=== PATIENT | male | born 1940 ===

== ENCOUNTER 2022-09-09 09:34 | Emergency (ER) | payer BC, SELFPAY ==
[2022-09-09] VITALS (11 sets, daily range): BP systolic 130–154; BP diastolic 37–93; PULSE 50–81; RESP 20; TEMP 36.4; O2SAT 93–98; BMI 25.8
--- NOTE | 2022-09-09 09:54 | CRLHL7_ITS ---
For Patients: As a result of the Cures Act, medical imaging exams and procedure reports are released immediately into your electronic medical record. You may view this report before your referring provider. If you have questions, please contact your health care provider. INDICATION: Bradycardia COMPARISON: None TECHNIQUE: AP portable single view study FINDINGS: TUBES AND LINES: None. HEART AND MEDIASTINUM: The heart size is normal. The mediastinal contour appears normal for patient age. LUNGS AND PLEURAL SPACES: The lungs appear normal.The pleural spaces are unremarkable. OSSEOUS STRUCTURES: Age-appropriate appearance. No acute focal finding. IMPRESSION: No evidence of active pulmonary disease. Dictated by Angel Clayton MD @ 09/09/2022 10:36:40 AM (Electronically Signed)
--- NOTE | 2022-09-09 10:02 | ED.GENADULT ---
HPI - General Adult General Time Seen by Provider: 10:02 Date Seen: 09/09/22 Chief complaint: High Blood Pressure Stated complaint: High BP low pulse Time Seen by Provider: 09/09/22 09:40 Source: patient Mode of arrival: ambulatory Limitations: no limitations History of Present Illness HPI narrative: Patient is an 81-year-old male lives independently presents with his niece. He sees Dr. Jose G pandya in [place] for primary care. He has a health history of hypertension and is on Cardura and lisinopril. He checks his blood pressure and pulse regularly and he notices occasionally his pulse is in the 30s, but he does this on a home monitor. He has no symptoms. No dizziness lightheadedness. He does have a history of vertigo. He has had no chest pain, shortness of breath, COVID symptoms. He has been active without chest pain or shortness of breath. He called the clinic and they told him to come directly to the ER Related Data Home Medications Medication Instructions Recorded Confirmed atorvastatin 10 mg tablet 10 mg PO DAILY 09/09/22 09/09/22 doxazosin 8 mg tablet (Cardura) 8 mg PO DAILY 09/09/22 09/09/22 levothyroxine 112 mcg capsule 112 mcg PO DAILY 09/09/22 09/09/22 lisinopril 20 mg tablet 20 mg PO DAILY 09/09/22 09/09/22 Previous Rx's Medication Instructions Recorded apixaban 2.5 mg tablet (Eliquis) 2.5 mg PO BID #60 tabs 09/09/22 Allergies Allergy/AdvReac Type Severity Reaction Status Date / Time levofloxacin [From Levaquin] Allergy Verified 09/09/22 09:54 Review of Systems Status of ROS: Reports: 6 or more systems reviewed and unremarkable except as noted in History and below PFSH PFSH Social History Smoking Status: Former smoker What tobacco products do you use: cigarettes Do you use any of these nicotine containing products: None Second hand tobacco smoke exposure: No How often do you have a drink containing alcohol: monthly or less How often do you have six or more drinks on one occasion: Never AUDIT-C Alcohol total score: 1 Non-prescribed substance use: denies use Exam Narrative: Exam Narrative: Objective: Patient is in no apparent distress vital signs unremarkable his pulse is 67 his blood pressure is 154/93 O2 sat is 97% on room air HEENT is unremarkable no scleral icterus no facial asymmetry Neck is supple Chest clear Heart rhythm regular with 2/6 systolic murmur occasional ectopic beat noted Abdomen benign soft nontender no masses Extremities are no edema neurologic nonfocal Skin is warm and dry, good peripheral perfusion Const: Vital Signs, click to edit/add: Vital Signs - 24 hr 09/09/22 09:42 09/09/22 10:18 09/09/22 10:30 Temperature 97.6 F Pulse Rate 57 L 62 Pulse Rate [Right Pulse Oximeter] 67 Respiratory Rate 20 Blood Pressure Blood Pressure [Ri ght Upper Arm] 154/93 H Pulse Oximetry 97 94 96 Oxygen Delivery Me thod Room Air 09/09/22 10:32 09/09/22 10:45 09/09/22 11:00 Temperature Pulse Rate 58 L 53 L 57 L Pulse Rate [Right Pulse Oximeter] Respiratory Rate Blood Pressure 140/76 H Blood Pressure [Ri ght Upper Arm] Pulse Oximetry 94 98 97 Oxygen Delivery Me thod 09/09/22 11:02 09/09/22 11:15 09/09/22 11:30 Temperature Pulse Rate 53 L 50 L 52 L Pulse Rate [Right Pulse Oximeter] Respiratory Rate Blood Pressure 130/82 Blood Pressure [Ri ght Upper Arm] Pulse Oximetry 97 97 93 Oxygen Delivery Me thod 09/09/22 11:31 09/09/22 11:45 Temperature Pulse Rate 81 56 L Pulse Rate [Right Pulse Oximeter] Respiratory Rate Blood Pressure 153/37 H Blood Pressure [Ri ght Upper Arm] Pulse Oximetry 96 97 Oxygen Delivery Me thod Course Vital Signs Vital signs: Initial Vital Signs Temperature 97.6 F 09/09/22 09:42 Temperature Source Temporal Artery Scan 09/09/22 09:42 Pulse Rate 67 09/09/22 09:42 Pulse Rhythm 09/09/22 09:42 Respiratory Rate 20 09/09/22 09:42 Blood Pressure 154/93 H 09/09/22 09:42 Blood Pressure Mean 113 09/09/22 09:42 Blood Pressure Position Semi-Fowlers 09/09/22 09:42 Pulse Oximetry 97 09/09/22 09:42 Oxygen Delivery Method 09/09/22 09:42 Vital Signs Temperature 97.6 F 09/09/22 09:42 Pulse Rate 67 09/09/22 09:42 Respiratory Rate 20 09/09/22 09:42 Blood Pressure 154/93 H 09/09/22 09:42 Pulse Oximetry 97 09/09/22 09:42 Oxygen Delivery Method 09/09/22 09:42 Temperature 97.6 F 09/09/22 09:42 Pulse Rate 56 L 09/09/22 11:45 Respiratory Rate 20 09/09/22 09:42 Blood Pressure 153/37 H 09/09/22 11:31 Pulse Oximetry 97 09/09/22 11:45 Oxygen Delivery Method 09/09/22 09:42 Medical Decision Making MDM Narrative Medical decision making narrative: Patient has a history of elevated blood pressure and low pulse, at home on his blood pressure monitor. He he has no symptoms. Will observe him in the ED, get an EKG, laboratory studies, and consider a Holter monitor for him for ongoing monitoring if he looks reasonably stable here. Unusual he would have a low pulse and a high blood pressure, that seems like he may have some air on this machine at home, but will check and monitor him on a telemetry and are blood pressure monitor here. Addendum: The patient by my read has an EKG that shows atrial fibrillation at a rate of 55 beats per minute no obvious ischemic changes. Some artifact present. Will continue to monitor him in the ED. Will give him Eliquis 2.5 mg orally as he is in AFib his rate is controlled but he should have anticoagulation he is not falling and he stable. Will start him on Eliquis 2.5 mg b.i.d. given his age, and will have cardiology appointment set up, will put him in a Holter and also have him follow up with regular doctor in the next couple of days. Will review his labs as they return. Addendum: Lab studies look reassuring. Patient has not had any chest pain, does not know when he started with an irregular heart rate. He only notices on his blood pressure monitor. We have not seen any significant bradycardias been in the 50s and 60s and 70s pretty wrist steadily. I would recommend he do the Eliquis, will put a Holter monitor on, have follow-up with cardiology and his primary care physician. Any changes concerns return promptly to the ED he in his knees were comfortable plan. Lab Data Labs: Lab Results 09/09/22 09/09/22 Range/Units 10:20 10:20 WBC 4.68 (4.50-11.00) K/uL RBC 4.77 (4.30-5.90) m/uL Hgb 15.8 (13.5-17.5) gm/dL Hct 46.5 (37.0-53.0) % MCV 98 (80-100) fL MCH 33 (26-34) pg MCHC 34 (32-36) gm/dL RDW Coeff of Alisa 12.2 (11.5-15.5) % Plt Count 201 (140-440) K/uL Neut % (Auto) 75.2 H (42.0-72.0) % Lymph % (Auto) 11.3 L (20-44) % Bartholomew % (Auto) 9.2 (0.0-11.0) % Eos % (Auto) 3.0 (0.0-7.0) % Baso % (Auto) 1.1 (0.0-3.0) % Neut # (Auto) 3.50 (1.7-7.0) K/uL Lymph # (Auto) 0.50 L (0.90-2.90) K/uL Bartholomew # (Auto) 0.40 (0.00-0.90) K/UL Eos # (Auto) 0.14 (0.00-0.50) K/uL Baso # (Auto) 0.05 (0.00-0.30) K/uL Abs Immat Gran (auto) 0.01 (0.00-0.30) K/uL Imm/Tot Granulo (auto) 0.2 % Sodium 134 L (135-149) mmol/L Potassium 4.6 (3.6-5.1) mmol/L Chloride 103 (96-114) mmol/L Carbon Dioxide 24 (20-32) mmol/L BUN 11 (7-30) mg/dL Creatinine 0.7 (0.5-1.5) mg/dL Estimated Creat Clear 57.79 Estimated GFR 91 ml/min Glucose 89 (60-115) mg/dL Calcium 8.7 (8.4-10.6) mg/dL Total Bilirubin 1.3 (0.1-1.5) mg/dL Direct Bilirubin 0.0 (0.0-0.5) mg/dL AST 24 (12-35) U/L ALT 28 (4-50) U/L Alkaline Phosphatase 69 (40-150) U/L C-Reactive Protein < 0.5 L (0.5-1.0) mg/dL NT-Pro-B Natriuret Pep 717 H (0-450) PG/mL Total Protein 6.7 (6.0-8.3) g/dL Albumin 4.3 (3.3-5.0) g/dL Discharge Plan Discharge Clinical Impression: Bradycardia, Atrial fibrillation with controlled ventricular rate Patient Disposition: Home w/ Parent or Adult Condition: Improved Additional Instructions: Light activity, Eliquis 2 times a day 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 Return to ED problems or concerns. Will check the Holter monitor results when they return Follow up appointment is scheduled at the [facility] with Dr. Park on 09/14 with an arrival time of 2pm. Your follow up appointment with Cardiology is also scheduled at the [facility] on 10/16 with a 9:15am arrival time. If you have any questions or need to reschedule for either appointment, please call [phone]. Activity Level: Light activity Discharge Diet: Regular Prescriptions: New Eliquis 2.5 mg tablet 2.5 mg PO BID Qty: 60 2RF No Action lisinopril 20 mg tablet 20 mg PO DAILY doxazosin [Cardura] 8 mg tablet 8 mg PO DAILY atorvastatin 10 mg tablet 10 mg PO DAILY levothyroxine 112 mcg capsule 112 mcg PO DAILY Stand Alone Forms: NeurOp Info Instructions
[2022-09-09 10:29] LABS: Basophils Absolute Auto 0.05 K/uL (0.00-0.30); Basophils Percent Auto 1.1 % (0.0-3.0); Eosinophils Absolute Auto 0.14 K/uL (0.00-0.50); Hematocrit 46.5 % (37.0-53.0); Hemoglobin* 15.8 gm/dL (13.5-17.5); Immature Granulocytes Abs Auto 0.01 K/uL (0.00-0.30); Immature Granulocytes Pct Auto 0.2 %; Lymphocytes Percent Auto 11.3 % (20-44); Mean Corpuscular HGB Conc 34 gm/dL (32-36); Mean Corpuscular Hemoglobin 33 pg (26-34); Mean Corpuscular Volume 98 fL (80-100); Monocytes Percent Auto 9.2 % (0.0-11.0); Neutrophils Percent Auto 75.2 % (42.0-72.0); Platelet Count* 201 K/uL (140-440); RDW Coefficient of Variation % 12.2 % (11.5-15.5); Red Blood Count 4.77 m/uL (4.30-5.90); White Blood Count* 4.68 K/uL (4.50-11.00)
[2022-09-09 10:34] LABS: Slide Review Reflex No
[2022-09-09] MEDS: APIXABAN 5 MG TABLET 2.5 MG PO (10:36)
[2022-09-09 10:41] LABS: Albumin* 4.3 g/dL (3.3-5.0); Chloride* 103 mmol/L (96-114); Potassium* 4.6 mmol/L (3.6-5.1); Sodium* 134 mmol/L (135-149)
[2022-09-09 10:43] LABS: Creatinine* 0.7 mg/dL (0.5-1.5); Est. Creatinine Clearance* 57.79; Estimated Glomerular Filt Rate 91 ml/min
[2022-09-09 10:44] LABS: Alanine Aminotransferase* 28 U/L (4-50); Alkaline Phosphatase* 69 U/L (40-150); Aspartate Amino Transferase* 24 U/L (12-35); Bilirubin Total* 1.3 mg/dL (0.1-1.5); Blood Urea Nitrogen* 11 mg/dL (7-30); Carbon Dioxide* 24 mmol/L (20-32); Glucose* 89 mg/dL (60-115); Total Protein* 6.7 g/dL (6.0-8.3)
[2022-09-09 10:45] LABS: Calcium* 8.7 mg/dL (8.4-10.6)
[2022-09-09 10:50] LABS: C Reactive Protein* < 0.5 mg/dL (0.5-1.0)
[2022-09-09 10:53] LABS: NT Pro B Type NatriureticPept* 717 PG/mL (0-450)
== END 2022-09-09 12:04 | disposition home or self-care (01) ==
PROVIDERS: Emergency Provider Family Medicine; PCP Family Medicine
DX: R00.1 Bradycardia, unspecified (principal); I48.91 Unspecified atrial fibrillation
CPT/HCPCS: 36415; 71045; 80048; 80076; 83880; 85025; 86140; 93005; 93225; 93226; 99284; A9270